=== PATIENT | female | born 1960 | race Caucasian/White ===

== ENCOUNTER 2020-07-19 08:06 | Emergency (ER) | payer OTHER ==
[~2020-07-19 08:06] MED LIST: OSCAL 500 + D TA1 EA PO; SINGULAIR10 MG PO
[2020-07-19 09:54] LABS: HEMOGLOBIN 13.4 gm/dl (12.3-15.3); RED BLOOD COUNT 4.26 M/UL (4.00-5.10); WHITE BLOOD COUNT 6.2 K/UL (4.5-11.0)
[2020-07-19 10:12] LABS: BUN/CREATININE RATIO 5 (0-10)
== END 2020-07-19 13:28 | disposition other institution (70) ==
LOC: ER1 08:06
PROVIDERS: Emergency Medicine
DX: G83.4 Cauda equina syndrome (principal); F17.200 Nicotine dependence, unspecified, uncomplicated; Z88.0 Allergy status to penicillin; Z88.6 Allergy status to analgesic agent; Z88.1 Allergy status to other antibiotic agents; Z88.8 Allergy status to other drugs, medicaments and biological substances
CPT/HCPCS: 72131; 80053; 80307; 81001; 85025; 85652; 86140; 87635; 96372; 96374; 99284; J2270; J2405; J2550

== ENCOUNTER 2020-08-07 19:35 | Emergency (ER) | payer OTHER | END 2020-08-07 22:45 | disposition left against medical advice (07) | LOC: ER1 19:35 | DX: R41.82 Altered mental status, unspecified (principal); M54.5 Low back pain; W18.30XA Fall on same level, unspecified, initial encounter; Y92.009 Unspecified place in unspecified non-institutional (private) residence as the place of occurrence of the external cause | CPT/HCPCS: 70450; 72100; 72125; 74018; 99285 ==

== ENCOUNTER 2020-08-13 15:08 | Emergency (ER) | payer OTHER ==
[2020-08-13 15:54] LABS: RED BLOOD COUNT 3.92 M/UL (4.00-5.10); WHITE BLOOD COUNT 8.7 K/UL (4.5-11.0)
[2020-08-13 16:30] LABS: BUN/CREATININE RATIO 7 (0-10)
== END 2020-08-14 22:28 | disposition home or self-care (01) ==
LOC: ER1 15:08
PROVIDERS: Physician Assistant
DX: N39.0 Urinary tract infection, site not specified (principal); R33.9 Retention of urine, unspecified; R20.2 Paresthesia of skin; M54.5 Low back pain; I10 Essential (primary) hypertension; J44.9 Chronic obstructive pulmonary disease, unspecified; Z88.6 Allergy status to analgesic agent; Z88.1 Allergy status to other antibiotic agents
CPT/HCPCS: 36415; 51702; 72131; 80053; 81001; 82550; 82553; 83874; 84484; 85025; 85652; 86140; 87077; 87086; 87186; 93005; 96365; 96375; 96376; 99285; J0696; J2270; J2550

== ENCOUNTER 2021-04-24 10:28 | Emergency (ER) | payer OTHER ==
[2021-04-24 11:33] LABS: HEMOGLOBIN 12.5 gm/dl (12.3-15.3); RED BLOOD COUNT 4.1 M/UL (4.00-5.10)
[2021-04-24] MEDS ORDERED: HYDROCODON-ACE1 EAC4 PO (14:49)
== END 2021-04-24 15:16 | disposition home or self-care (01) ==
LOC: ER1 10:28
PROVIDERS: Emergency Medicine
DX: M54.50 Low back pain, unspecified (principal); I10 Essential (primary) hypertension; Z90.49 Acquired absence of other specified parts of digestive tract
CPT/HCPCS: 72132; 80048; 85025; 85652; 86140; 87040; 96374; 99284; J2270; J2405; Q9967

== ENCOUNTER 2021-06-17 10:58 | Emergency (ER) | payer OTHER ==
[~2021-06-17 10:58] MED LIST changes: +HYDROCODON-ACE1 EAC4 PO
== END 2021-06-17 12:06 | disposition left against medical advice (07) ==
LOC: ER1 10:58
DX: Z53.21 Procedure and treatment not carried out due to patient leaving prior to being seen by health care provider (principal)

== ENCOUNTER 2021-08-02 09:00 | Emergency (ER) | payer OTHER ==
[2021-08-02 10:16] LABS: HEMOGLOBIN 11.3 gm/dl (12.3-15.3); RED BLOOD COUNT 3.87 M/UL (4.00-5.10); WHITE BLOOD COUNT 7.8 K/UL (4.5-11.0)
== END 2021-08-02 14:00 | disposition home or self-care (01) ==
LOC: ER1 09:00
PROVIDERS: Emergency Medicine
DX: S32.029K Unspecified fracture of second lumbar vertebra, subsequent encounter for fracture with nonunion (principal); S32.049K Unspecified fracture of fourth lumbar vertebra, subsequent encounter for fracture with nonunion; S22.089A Unspecified fracture of T11-T12 vertebra, initial encounter for closed fracture; I10 Essential (primary) hypertension; J44.9 Chronic obstructive pulmonary disease, unspecified; X58.XXXA Exposure to other specified factors, initial encounter
CPT/HCPCS: 72131; 80053; 81001; 85025; 96374; 96376; 99284; J2270; J2405

== ENCOUNTER 2021-08-05 04:55 | Emergency (ER) | payer OTHER ==
[2021-08-05] MEDS ORDERED: PREDNISONE20 MG PO (10:10)
[2021-08-05] MEDS ORDERED: CYCLOBENZAPRINE10 MG PO (10:10)
[2021-08-05] MEDS ORDERED: LIDOCAINE1 EAC1 TP (10:11)
== END 2021-08-05 10:40 | disposition home or self-care (01) ==
LOC: ER1 04:55
PROVIDERS: Emergency Medicine
DX: M54.16 Radiculopathy, lumbar region (principal); G89.29 Other chronic pain; K59.00 Constipation, unspecified; E86.0 Dehydration
CPT/HCPCS: 72100; 72170; 73552; 73590; 80048; 96372; 99284; J2060; J2212; J2360; J2930

== ENCOUNTER 2021-08-07 03:14 | Emergency (ER) | payer OTHER ==
[~2021-08-07 03:14] MED LIST changes: +CYCLOBENZAPRINE10 MG PO; +LIDOCAINE1 EAC1 TP; +PREDNISONE20 MG PO
[2021-08-07 05:59] LABS: HEMOGLOBIN 11.9 gm/dl (12.3-15.3); RED BLOOD COUNT 4.1 M/UL (4.00-5.10); WHITE BLOOD COUNT 11.1 K/UL (4.5-11.0)
[2021-08-07 06:07] LABS: BUN/CREATININE RATIO 10 (0-10)
== END 2021-08-07 09:30 | disposition home or self-care (01) ==
LOC: ER1 03:14
PROVIDERS: Physician Assistant
DX: M54.50 Low back pain, unspecified (principal); M79.662 Pain in left lower leg
CPT/HCPCS: 80048; 85025; 85652; 86140; 99283

== ENCOUNTER 2021-08-08 08:31 | Emergency (ER) | payer OTHER ==
[2021-08-08 09:33] LABS: HEMOGLOBIN 11.5 gm/dl (12.3-15.3); RED BLOOD COUNT 4.02 M/UL (4.00-5.10)
[2021-08-08 09:40] LABS: WHITE BLOOD COUNT 8.2 K/UL (4.5-11.0)
== END 2021-08-08 19:28 | disposition short-term general hospital (02) ==
LOC: ER1 08:31
PROVIDERS: Emergency Medicine
DX: G57.81 Other specified mononeuropathies of right lower limb (principal); M54.9 Dorsalgia, unspecified; Z20.822 Contact with and (suspected) exposure to COVID-19
CPT/HCPCS: 51702; 72157; 72158; 85025; 85652; 86140; 96374; 96375; 96376; 99285; A9577; J1170; J2270; J2543; J2550; J3370; J7070; U0002

== ENCOUNTER → 2021-10-30 | Outpatient (CLI) | payer OTHER ==
[2021-10-30 15:25] LABS: RED BLOOD COUNT 4.7 M/UL (4.00-5.10); WHITE BLOOD COUNT 5.9 K/UL (4.5-11.0)
[2021-10-30 15:43] LABS: BUN/CREATININE RATIO 7 (0-10)
[2021-10-31 08:24] LABS: PREALBUMIN 27 mg/dL (10-36)
[2021-10-31 17:09] LABS: A/G RATIO 1.4 (0.7-1.7); ALBUMIN 4.2 g/dL (2.9-4.4); ALPHA-1-GLOBULIN 0.4 g/dL (0.0-0.4); ALPHA-2-GLOBULIN 0.8 g/dL (0.4-1.0); BETA GLOBULIN 1.1 g/dL (0.7-1.3); GAMMA GLOBULIN 0.9 g/dL (0.4-1.8); GLOBULIN, TOTAL 3.1 g/dL (2.2-3.9); IMMUNOGLOBULIN A, QN, SERUM 172 mg/dL (87-352); IMMUNOGLOBULIN G, QN, SERUM 924 mg/dL (586-1602); IMMUNOGLOBULIN M, QN, SERUM 79 mg/dL (26-217); M-SPIKE Not Observed g/dL (Not Observed); PROTEIN, TOTAL, SERUM 7.3 g/dL (6.0-8.5)
== END ==
LOC: LAB 13:14
DX: M81.0 Age-related osteoporosis without current pathological fracture (principal)
CPT/HCPCS: 36415; 80053; 82652; 82784; 83735; 83970; 84080; 84100; 84105; 84134; 84155; 84165; 85027; 86334

== ENCOUNTER → 2021-11-04 | Outpatient (CLI) | payer OTHER ==
[2021-11-04 20:44] LABS: URINE CREATININE 25.9 mg/dL
[2021-11-04 20:45] LABS: URINE CALCIUM < 2.0 mg/dL
== END ==
LOC: LAB 15:04
DX: M81.0 Age-related osteoporosis without current pathological fracture (principal)
CPT/HCPCS: 82340; 82570; 84105

== ENCOUNTER 2021-11-25 10:40 | Emergency (ER) | payer OTHER ==
[2021-11-25 15:21] LABS: HEMOGLOBIN 11.8 gm/dl (12.3-15.3); RED BLOOD COUNT 4.33 M/UL (4.00-5.10); WHITE BLOOD COUNT 6.8 K/UL (4.5-11.0)
[2021-11-25 15:47] LABS: BUN/CREATININE RATIO 8 (0-10)
== END 2021-11-25 16:38 | disposition home or self-care (01) ==
LOC: ER1 10:40
PROVIDERS: Physician Assistant
DX: S32.592A Other specified fracture of left pubis, initial encounter for closed fracture (principal); S30.0XXA Contusion of lower back and pelvis, initial encounter; I10 Essential (primary) hypertension; J44.9 Chronic obstructive pulmonary disease, unspecified; Z88.0 Allergy status to penicillin; Z88.8 Allergy status to other drugs, medicaments and biological substances; W19.XXXA Unspecified fall, initial encounter; Y92.009 Unspecified place in unspecified non-institutional (private) residence as the place of occurrence of the external cause
CPT/HCPCS: 72131; 72192; 80053; 81001; 83690; 85025; 99284

== ENCOUNTER 2021-12-02 14:52 | Inpatient (IN) | payer OTHER ==
[~2021-12-02] VITALS: Ht 147.3 cm; Wt 48.5 kg
[~2021-12-02 14:52] MED LIST changes: +CYANOCOBAL1000 MCG/1 INJ
[2021-12-02 19:44] LABS: HEMOGLOBIN 11.2 gm/dl (12.3-15.3); RED BLOOD COUNT 4.11 M/UL (4.00-5.10); WHITE BLOOD COUNT 8.5 K/UL (4.5-11.0)
[2021-12-02 20:11] LABS: BUN/CREATININE RATIO 8 (0-10)
[2021-12-03] MEDS ORDERED: VITAMIN D21250 MCG PO (10:21)
[2021-12-03] MEDS ORDERED: GABAPENTIN600 MG PO (10:22)
[2021-12-03] MEDS ORDERED: HYDROXYZINE PAM25 MG PO (10:24)
[2021-12-03] MEDS ORDERED: BACLOFEN10 MG PO (10:25)
[2021-12-03] MEDS ORDERED: ARTHRITIS PAIN150 GM TP (10:26)
[2021-12-03] MEDS ORDERED: DULOXETINE HCL60 MG PO (10:26)
[2021-12-03] MEDS ORDERED: PROMETHAZINE HC25 M1 PO (10:27)
[2021-12-03] MEDS ORDERED: DEXLANSOPRAZOLE60 MG PO (10:28)
[2021-12-03] MEDS ORDERED: ATENOLOL50 MG PO (10:28)
[2021-12-03] MEDS ORDERED: NORTRIPTYLINE H25 MG PO (10:30)
[2021-12-03] MEDS ORDERED: LIDOCAINE HCL85 GM TOP (10:31)
[2021-12-03] MEDS ORDERED: FISH OIL 1,0001 EACH PO (10:31)
[2021-12-03] MEDS ORDERED: FLONASE 0.05% N16 GM (10:32)
[2021-12-03] MEDS ORDERED: CRESTOR10 MG PO (10:32)
[2021-12-03] MEDS ORDERED: MONTELUKAST SOD10 MG PO (10:33)
[2021-12-03] MEDS ORDERED: ZYRTEC10 MG PO (10:33)
[2021-12-04 04:47] LABS: WHITE BLOOD COUNT 7.4 K/UL (4.5-11.0)
[2021-12-04 04:56] LABS: HEMOGLOBIN 13.8 gm/dl (12.3-15.3); RED BLOOD COUNT 5.08 M/UL (4.00-5.10)
[2021-12-04 05:24] LABS: BUN/CREATININE RATIO 11 (0-10)
[2021-12-06 03:17] LABS: HEMOGLOBIN 13.4 gm/dl (12.3-15.3); RED BLOOD COUNT 5.03 M/UL (4.00-5.10); WHITE BLOOD COUNT 8.9 K/UL (4.5-11.0)
[2021-12-06 03:35] LABS: BUN/CREATININE RATIO 12 (0-10)
[2021-12-07 07:05] LABS: HEMOGLOBIN 12.3 gm/dl (12.3-15.3); RED BLOOD COUNT 4.58 M/UL (4.00-5.10)
[2021-12-07 07:09] LABS: WHITE BLOOD COUNT 4.9 K/UL (4.5-11.0)
[2021-12-07 07:25] LABS: BUN/CREATININE RATIO 12 (0-10)
[2021-12-08 06:51] LABS: HEMOGLOBIN 12.3 gm/dl (12.3-15.3); RED BLOOD COUNT 4.58 M/UL (4.00-5.10); WHITE BLOOD COUNT 8.3 K/UL (4.5-11.0)
[2021-12-08 07:38] LABS: BUN/CREATININE RATIO 10 (0-10)
[2021-12-09 02:33] LABS: HEMOGLOBIN 11.2 gm/dl (12.3-15.3); RED BLOOD COUNT 4.26 M/UL (4.00-5.10); WHITE BLOOD COUNT 6.4 K/UL (4.5-11.0)
[2021-12-09 03:15] LABS: BUN/CREATININE RATIO 11 (0-10)
[2021-12-10 04:03] LABS: HEMOGLOBIN 11.3 gm/dl (12.3-15.3); RED BLOOD COUNT 4.21 M/UL (4.00-5.10); WHITE BLOOD COUNT 6.7 K/UL (4.5-11.0)
[2021-12-10 04:25] LABS: BUN/CREATININE RATIO 11 (0-10)
[2021-12-11 02:56] LABS: HEMOGLOBIN 10.9 gm/dl (12.3-15.3); RED BLOOD COUNT 4.01 M/UL (4.00-5.10); WHITE BLOOD COUNT 6.9 K/UL (4.5-11.0)
[2021-12-11 03:34] LABS: BUN/CREATININE RATIO 9 (0-10)
[2021-12-12 03:20] LABS: HEMOGLOBIN 10.8 gm/dl (12.3-15.3); RED BLOOD COUNT 4.02 M/UL (4.00-5.10); WHITE BLOOD COUNT 5.3 K/UL (4.5-11.0)
[2021-12-12 03:59] LABS: BUN/CREATININE RATIO 9 (0-10)
[2021-12-12] MEDS ORDERED: ROXICODONE TAB 55 MG PO ×2 (08:40→08:44)
[2021-12-12] MEDS ORDERED: ATENOLOL25 MG PO (08:40)
[2021-12-12] MEDS ORDERED: MIRALAX17 GM PO (08:40)
[2021-12-12] MEDS ORDERED: HYDROCODON-ACE1 EAC4 PO (08:40)
[2021-12-12] MEDS ORDERED: SENNA PLUS 8.61 EACH PO (08:40)
[2021-12-12] MEDS ORDERED: DURAGESIC 12 M1 EACH TD (09:06)
[2021-12-12] MEDS ORDERED: LACTULOSE20 GM/30 M PO (09:06)
[2021-12-12] MEDS ORDERED: HYDRALAZINE HCL25 MG PO (09:06)
--- NOTE | 2021-12-12 10:49 | NUR ---
REPORT CALLED TO LOR[facility] AT [facility], PATIENT BELONGINGS PACKED AND IV REMOVED WITH TIP INTACT.
== END 2021-12-12 11:31 | DRG 536 ==
LOC: ER1 14:52 → M/S 17:58 → CDU 17:58 → M/S 22:53
PROVIDERS: Internal Medicine; Internal Medicine Nephrology; Physician Assistant; ADMIT Internal Medicine
DX: S32.592A Other specified fracture of left pubis, initial encounter for closed fracture (principal); S32.10XA Unspecified fracture of sacrum, initial encounter for closed fracture; E87.1 Hypo-osmolality and hyponatremia; E27.40 Unspecified adrenocortical insufficiency; I10 Essential (primary) hypertension; Z20.822 Contact with and (suspected) exposure to COVID-19; R63.1 Polydipsia; E78.5 Hyperlipidemia, unspecified; J44.9 Chronic obstructive pulmonary disease, unspecified; R53.81 Other malaise; M50.30 Other cervical disc degeneration, unspecified cervical region; E78.00 Pure hypercholesterolemia, unspecified; M81.0 Age-related osteoporosis without current pathological fracture; W18.30XA Fall on same level, unspecified, initial encounter; M54.9 Dorsalgia, unspecified; Z98.890 Other specified postprocedural states; Z79.01 Long term (current) use of anticoagulants; Z95.2 Presence of prosthetic heart valve; Z87.891 Personal history of nicotine dependence; Z90.49 Acquired absence of other specified parts of digestive tract; Z80.1 Family history of malignant neoplasm of trachea, bronchus and lung; Z82.3 Family history of stroke
CPT/HCPCS: 36415; 71045; 71046; 72131; 72192; 80053; 81001; 82533; 83735; 83880; 84100; 84295; 84443; 84703; 85025; 85027; 85652; 87086; 96372; 97116; 97116-GP-CQ; 97162; 97530; 97530-GP-CQ; 99284; J0834; J1650; J2270; J3420; Q0177

== ENCOUNTER → 2022-01-15 | Outpatient (CLI) | payer OTHER ==
[~2022-01-15] MED LIST changes: +ARTHRITIS PAIN150 GM TP; +ATENOLOL25 MG PO; +ATENOLOL50 MG PO; +BACLOFEN10 MG PO; +CRESTOR10 MG PO; +DEXLANSOPRAZOLE60 MG PO; +DULOXETINE HCL60 MG PO; +DURAGESIC 12 M1 EACH TD; +FISH OIL 1,0001 EACH PO; +FLONASE 0.05% N16 GM; +GABAPENTIN600 MG PO; +HYDRALAZINE HCL25 MG PO; +HYDROXYZINE PAM25 MG PO; +LACTULOSE20 GM/30 M PO; +LIDOCAINE HCL85 GM TOP; +MIRALAX17 GM PO; +MONTELUKAST SOD10 MG PO; +NORTRIPTYLINE H25 MG PO; +PROMETHAZINE HC25 M1 PO; +ROXICODONE TAB 55 MG PO; +SENNA PLUS 8.61 EACH PO; +VITAMIN D21250 MCG PO; +ZYRTEC10 MG PO
[2022-01-15 11:45] LABS: HEMOGLOBIN 11.5 gm/dl (12.3-15.3); RED BLOOD COUNT 4.24 M/UL (4.00-5.10); WHITE BLOOD COUNT 5.8 K/UL (4.5-11.0)
== END ==
LOC: LAB 11:09
PROVIDERS: Nurse Practitioner
DX: D64.9 Anemia, unspecified (principal); I10 Essential (primary) hypertension; R89.8 Other abnormal findings in specimens from other organs, systems and tissues; J44.9 Chronic obstructive pulmonary disease, unspecified
CPT/HCPCS: 36415; 80053; 80061; 82607; 82746; 83036; 83540; 83550; 84439; 84443; 85025

== ENCOUNTER → 2022-03-19 | Outpatient (CLI) | payer OTHER | LOC: RAD 13:24 | DX: M25.551 Pain in right hip (principal); M54.50 Low back pain, unspecified; M47.816 Spondylosis without myelopathy or radiculopathy, lumbar region | CPT/HCPCS: 72110; 73502 ==